=== PATIENT | female | born 1970 | race Caucasian/White ===

== ENCOUNTER 2020-04-26 14:57 | Emergency (ER) | payer BC | END 2020-04-26 17:15 | disposition home or self-care (01) | LOC: ER1 14:57 | DX: S90.31XA Contusion of right foot, initial encounter (principal); I10 Essential (primary) hypertension; Z98.84 Bariatric surgery status; Z79.899 Other long term (current) drug therapy; W22.09XA Striking against other stationary object, initial encounter; Y92.009 Unspecified place in unspecified non-institutional (private) residence as the place of occurrence of the external cause | CPT/HCPCS: 73610; 73630; 96372; 99283; J2270 ==

== ENCOUNTER 2021-04-19 10:46 | Emergency (ER) | payer BC ==
[2021-04-19 12:18] LABS: WHITE BLOOD COUNT 7.2 K/UL (4.5-11.0)
[2021-04-19 13:51] LABS: BUN/CREATININE RATIO 17 (0-10)
== END 2021-04-19 17:37 | disposition short-term general hospital (02) ==
LOC: ER1 10:46
PROVIDERS: Physician Assistant Medical
DX: K56.609 Unspecified intestinal obstruction, unspecified as to partial versus complete obstruction (principal); I10 Essential (primary) hypertension; Z20.822 Contact with and (suspected) exposure to COVID-19; Z90.49 Acquired absence of other specified parts of digestive tract; R11.2 Nausea with vomiting, unspecified; R10.84 Generalized abdominal pain
CPT/HCPCS: 80053; 81001; 82150; 82550; 82553; 83605; 83690; 83874; 84484; 84703; 85025; 93005; 96374; 96375; 96376; 99285; C9113; J1170; J2270; J2405; J2765; Q9967; U0002

== ENCOUNTER → 2021-10-31 | Outpatient (CLI) | payer BC | LOC: CT 08:21 | DX: Z98.84 Bariatric surgery status (principal); K59.00 Constipation, unspecified | CPT/HCPCS: Q9967 ==